=== PATIENT | male | born 1960 | race Caucasian/White ===

== ENCOUNTER 2017-01-14 10:34 | Observation (INO) | payer SELFPAY ==
--- NOTE | ~2017-01-14 | CN ---
Consultation Report [facility] [address] [place]. [address] NAME: TODD ROBERTS : 60 STATUS : ADM IN PAT#: [id number] AGE: 56 ADM/REG DATE : 01/14/17 MR#: [id number] REPORT SERV DATE: 01/15/17 DICTATED BY: LARRYJANENE TODD DATE: 01/14/17 REPORT STATUS : Draft TRANSCRIBED BY: MODL DATE: 01/14/17 EP CONSULTATION DATE OF CONSULTATION: INDICATION: Sick sinus syndrome with presyncope and asystole. 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 He is disabled due to arrhythmias and has had a number of ablations over the years. He had two ablations by Dr. Henao, the one record available to find is from 09/16/2006 and he had apparently another ablation for which he was in the laboratory approximately 20 hours. He had subsequent ablations by Dr. Reyes. Since that time, he has been followed at the [facility]. He has had recurrent atrial fibrillation and more recently episodes of presyncope. In 2013, he had a coronary angiogram showing nonobstructive coronary disease with normal LV function. He has underlying COPD and continues to smoke. He has been unable to get his home medications recently and has majority of his care done through the [facility]. CURRENT HOME MEDICATIONS: Alprazolam 0.5 p.r.n., apixaban 5 b.i.d., diltiazem ER 180 a day, flecainide 100 q.12 hours. ALLERGIES OR INTOLERANCES: None. SOCIAL HISTORY: He is a . Two healthy daughters and grand children. Smokes one half to one pack per day. FAMILY HISTORY: Positive for coronary artery disease. In his 50s, his brother had two myocardial infarctions. PAST MEDICAL HISTORY/REVIEW OF SYSTEMS: Surgical history includes appendectomy, cholecystectomy, bilateral knee surgeries, and tonsillectomy as a child. He has had a right inguinal hernia repair. He has had the atrial fibrillation as noted above. PHYSICAL EXAMINATION: GENERAL: A 56-year-old white male, pleasant. VITAL SIGNS: Blood pressure 104/72, pulse 65 and regular, respirations 16. SKIN: No xanthelasmas. He does have a dysplastic nevus in the mid back area. JVD is not elevated. No carotid bruits. CHEST: There is hyper-resonance to percussion. There are no crackles. CARDIAC: At present, S1 normal, S2 is physiologic. ABDOMEN: Soft. EXTREMITIES: Without edema. No clubbing. NEUROLOGIC: No focal deficits. LABORATORY DATA: Potassium 3.8, BUN 10, creatinine 0.86, glucose 110, albumin 3.1. [facility] Consultation Report [address] [place]. [address] NAME: TODD ROBERTS : 60 STATUS : ADM IN PAT#: [id number] AGE: 56 ADM/REG DATE : 01/14/17 MR#: [id number] REPORT SERV DATE: 01/15/17 DICTATED BY: JANENE ZAYAS DATE: 01/14/17 REPORT STATUS : Draft TRANSCRIBED BY: SNEHA DATE: 01/14/17 count 9.1, hemoglobin 13.2, platelets 166,000. ECG baseline shows intermittent atrial fibrillation, periods of ectopic atrial tachycardia, and prolonged pauses with junctional escape. No acute repolarization changes present. His last cath report from 02/05/2016 showed an LVEF of 55% with an LVEDP of 8 mmHg. IMPRESSION: Sick sinus syndrome with recurrent paroxysmal atrial fibrillation followed by episodes of asystole. We will plan pacemaker placement. Risks and benefits have been discussed with the patient and his daughter. BARON/SNEHA Janene Zayas M.D. / [id number] CC: Janene Zayas M.D. [facility]
--- NOTE | ~2017-01-14 | OP ---
Record Of Operation [facility] [address] [place] [place] [address] NAME: TODD ROBERTS : 60 STATUS : ADM IN PAT#: [id number] AGE: 56 ADM/REG DATE : 01/14/17 MR#: [id number] REPORT SERV DATE: 01/15/17 DICTATED BY: TODD NAILS JR. DATE: 01/14/17 REPORT STATUS : Draft TRANSCRIBED BY: SNEHA DATE: 01/14/17 DATE OF PROCEDURE: 01/14/2017 SURGEON: Todd Nails MD PROCEDURE: Excision lesion on the back. PREOPERATIVE DIAGNOSIS: Recurrent pigmented lesion on the back. POSTOPERATIVE DIAGNOSIS: Recurrent lesion on the back. ANESTHESIA: Local. INDICATIONS: The patient has a lesion at the back. Excision is indicated. DESCRIPTION OF PROCEDURE: He was prepped with Hibiclens, draped sterilely. He was infiltrated with 1% lidocaine. With a 15 blade elliptical incision was made over the lesion completely measuring 7 mm. This was submitted to pathology. The resulting defect was closed with suture of 5-0 nylon. Sterile dressing was applied. He tolerated well. ESTIMATED BLOOD LOSS: 10 mL. DARLENE/SNEHA Todd Nails Jr., M.D. / [id number] CC: Ghassan Zayas M.D.
[~2017-01-14 10:34] MED LIST: ASA5GR PO; ASAB PO; ASABAYER PO; BREO ELLIPTA INH; C5; C5 PO; CARD120 PO; CARD60 PO; CARDCD120 PO; CARDIZEM LA180 MG PO; CLARIT10 PO; DALIRESP500 MCG PO; DIGITEK0.25 MG PO; ELIQUIS; ELIQUIS 5 MG TAB5 MG PO; FLECAINIDE100 MG PO; I10 PO; KLONO1 PO; KLONO5 PO; LAN125; LAN25 PO; LIPITOR40 PO; LOP25 PO; LORTAB 5 PO; MOTRIN IB200 MG PO; MULTIPLE VIT PO; NICODERM C21 MG/241 TOP; OXYCOD PO; OXYCON10 PO; PERCOCET1 TA4; PR12.5 PO; PROTONIX PO; RYTHMOL150 MG PO; RYTHMOL300 MG PO; SPIRIVA INH; SPIRIVA RESPIMAT INH; TAMBO50 PO; VENTOLIN HFA INH; VENTOLIN HFA PO; VICODINTAB PO; XANAX1 MG PO
[2017-01-15] MEDS ORDERED: NORCO1 TA1 PO (09:46)
[2017-03-20] MEDS ORDERED: CORDARONE PO (15:10)
== END 2017-01-15 10:00 | disposition home or self-care (01) ==
LOC: SSU1 10:34
PROC: 0JH606Z Insertion of Pacemaker, Dual Chamber into Chest Subcutaneous Tissue and Fascia, Open Approach (ICD-10-PCS; principal; 2017-01-14)
PROC: 02H63JZ Insertion of Pacemaker Lead into Right Atrium, Percutaneous Approach (ICD-10-PCS; 2017-01-14)
PROC: 02HK3JZ Insertion of Pacemaker Lead into Right Ventricle, Percutaneous Approach (ICD-10-PCS; 2017-01-14)
PROC: 0WB Anatomical Regions, General, Excision (ICD-10-PCS; 2017-01-14)
DX: I49.5 Sick sinus syndrome (principal); I48.0 Paroxysmal atrial fibrillation; Q82.8 Other specified congenital malformations of skin; F17.210 Nicotine dependence, cigarettes, uncomplicated; J44.9 Chronic obstructive pulmonary disease, unspecified; Z90.49 Acquired absence of other specified parts of digestive tract; Z90.89 Acquired absence of other organs; Z98.890 Other specified postprocedural states
CPT/HCPCS: 33208; 71010; 82962; 88305; 88341; 88342; A9270-GY; C1785; C1892; C1898; G0378; J0690; J2250; J3010